=== PATIENT | female | born 1960 | race Caucasian/White ===

== ENCOUNTER 2017-11-29 14:03 | Inpatient (IN) ==
[2017-11-29 15:16] LABS: Basophils % 0.4 %; Eosinophils # 0.1 K/mcL (0.0-0.6); Eosinophils % 0.5 %; Hematocrit 45.5 % (35.3-44.9); Hemoglobin 14.3 g/dL (11.5-15.4); Immature Granulocytes % 0.2 % (0-4); Lymphocytes # 1.1 K/mcL (0.6-4.6); Lymphocytes % 11.5 %; Mean Corpuscular HGB Conc 31.4 g/dL (31.6-35.5); Mean Corpuscular Hemoglobin 31.4 pg (28.0-33.3); Mean Platelet Volume 9.1 fL (9.4-12.4); Monocytes % 10.2 %; Neutrophils # 7.5 K/mcL (1.6-8.9); Platelet Count 248 K/mcL (140-400); Red Blood Count 4.55 M/mcL (3.82-4.97); Red Cell Distribution Width 14.1 % (11.5-14.5); Segmented Neutrophils % 77.2 %
[2017-11-29 15:37] LABS: Troponin I < 0.03 ng/mL (< 0.04)
[2017-11-29] MEDS ORDERED: methylPREDNISolone 125 MG/2 ML VIAL IVP ONE (15:37)
[2017-11-29] MEDS ORDERED: Ipratropium/Albuterol Neb 3 ML IH ONE (15:37)
[2017-11-29 15:40] LABS: Alanine Aminotransferase 9 Units/L (7-52); Albumin 3.4 g/dL (3.5-5.7); Albumin/Globulin Ratio 0.9 (1.1-2.2); Alkaline Phosphatase 112 Units/L (34-104); Aspartate Amino Transferase 12 Units/L (13-39); BUN/Creatinine Ratio 14 (6-26); Bilirubin,Direct 0.2 mg/dL (0.0-0.2); Bilirubin,Indirect 0.3 mg/dL (0.0-1.2); Bilirubin,Total 0.5 mg/dL (0.3-1.0); Blood Urea Nitrogen 10 mg/dL (6-20); Calcium 9.4 mg/dL (8.6-10.3); Carbon Dioxide 37 mEq/L (23-29); Chloride 98 mEq/L (98-107); Globulin 3.6 g/dL (2.4-3.5); Glucose 122 mg/dL (70-105); Osmolality,Calculated 288 (280-300); Potassium 3.8 mEq/L (3.5-5.1); Sodium 139 mEq/L (136-145); eGFR For African Americans > 60 (> 60); eGFR For Non-African Americans > 60 (> 60)
--- NOTE | 2017-11-29 16:12 | Emergency Department Note ---
Disposition Clinical Impression: COPD (chronic obstructive pulmonary disease) Qualifiers: COPD type: COPD with acute lower respiratory infection Qualified Code(s): J44.0 - Chronic obstructive pulmonary disease with acute lower respiratory infection Pneumonia Qualifiers: Pneumonia type: due to unspecified organism Laterality: unspecified laterality Lung location: unspecified part of lung Qualified Code(s): J18.9 - Pneumonia, unspecified organism Disposition: Admitted As Inpatient Condition: Fair Referrals: Familia Slater MD [Primary Care Provider] - Forms: ED Satisfaction Letter Time of Disposition: 18:29 General Adult HPI - General Chief complaint: ED Shortness of Breath/Dyspnea Stated complaint: SOB Time Seen by Provider: 11/29/17 14:57 Source: patient Limitations: no limitations Nursing Notes Reviewed: Yes Vital Signs Reviewed: Yes - History of Present Illness HPI Narrative: Patient is a 57 showed female with a past medical history of COPD, CHF, HTN and HLD presenting to the emergency department for the presentation of difficulty in breathing. The patient states that the symptoms have come on gradually over the past 3 days now been worsening since that time. She describes a intermittently productive cough that brings up a white sputum. States that she recently quit smoking 3 days ago which she was a 2 pack per day smoker. She is currently on home oxygen she does not recall the amount that she uses daily and the patient is also on BiPAP at night. She denies any fevers, chest pain, pleuritic pain, nausea, vomiting, or diaphoresis. No history of blood clots. Pain Scale: 0 - Related Data Home Medications Medication Instructions Recorded Confirmed Albuterol Neb [Proventil Neb] 2.5 mg IH Q6H PRN 10/19/17 10/19/17 Albuterol Sulfate [Albuterol 2 puff IH Q4H PRN 10/19/17 10/19/17 Inhaler] Amitriptyline [Elavil] 50 mg PO HS 10/19/17 10/19/17 Budesonide/Formoterol 160/4.5 2 puff IH BIDR 10/19/17 10/19/17 [Symbicort 160/4.5] Cholecalciferol (Vitamin D3) 10,000 unit PO DAILY 10/19/17 10/19/17 [Vitamin D3] Diclofenac Sodium [Voltaren] 50 mg PO Q8HR 10/19/17 10/19/17 Famotidine [Pepcid] 20 mg PO BID 10/19/17 10/19/17 Gabapentin [Neurontin] 800 mg PO QID 10/19/17 10/19/17 Lisinopril/Hydrochlorothiazide 1 each PO DAILY 10/19/17 10/19/17 [Zestoretic 10-12.5 mg Tablet] Promethazine [Phenergan] 25 mg PO Q8H PRN 10/19/17 10/19/17 Tizanidine HCl 4 - 8 mg PO TID PRN 10/19/17 10/19/17 Trazodone HCl 100 mg PO HS PRN 10/19/17 10/19/17 Umeclidinium [place] [Incruse 62.5 mcg IH DAILY 10/19/17 10/19/17 Ellipta] Previous Rx's Medication Instructions Recorded Nicotine Patch [Nicoderm] 21 mg TD DAILY #30 patch.td24 10/25/17 predniSONE [PredniSONE] 10 mg PO DAILY #12 tablet 10/25/17 Allergies Allergy/AdvReac Type Severity Reaction Status Date / Time No Known Allergies Allergy Verified 12/09/15 12:33 All systems ED: reviewed and negative except as stated. Review of Systems: As Per HPI Constitutional: Denies: fever, chills ENT ED: Reports: congestion Cardiovascular: Reports: dyspnea on exertion. Denies: chest pain, palpitations , syncope Respiratory: Reports: cough, dyspnea, wheezes, sputum production. Denies: hemoptysis Gastrointestinal: Denies: abdominal pain, nausea, vomiting Past Medical History - Past Medical History Attestation: Yes The following information was validated with the patient. Medical history: Reports: CHF, COPD, hyperlipidemia, hypertension Surgical history: Reports: Psychiatric history: Reports: anxiety, depression MILL ORDER SCHEDULER history: Reports: no MILL ORDER SCHEDULER history - Social History Smoking Status: Current every day smoker Smokeless Tobacco Status: No Alcohol use: Reports: none Drug use: Reports: none Physical Exam CONSTITUTIONAL: A&O X 3, in no apparent distress. Patient is on 2 L nasal cannula satting in the low 90s. Tachycardic at 100. Patient does not appear to be in respiratory distress at this time. She speaks to me in full sentences she is sitting up with a nasal cannula on her face. HEAD: Normocephalic; atraumatic EYES: PERRL, no scleral icterus NOSE: The nose is normal in appearance without rhinorrhea NECK: No JVD or distended neck veins RESP: Normal chest excursion with respiration; wheezes throughout all lung betts. CARD: Regular rhythm, without murmurs, rub or gallop ABD: Non-distended; non-tender, soft, without rigidity, rebound or guarding,no pulsatile mass CHEST: No pain with palpation SKIN: Normal for age and race; warm and dry without diaphoresis ; no apparent lesions EXTREMITIES: Pulses are 2 plus and equal times 4 extremities, no peripheral edema or calf muscle pain. - General Limitations: no limitations General appearance: alert Course Course Narrative: Plan at this time is order basic labs as well as a troponin, EKG and chest x- ray to evaluate the patient's difficulty in breathing. She also received an IV dose of steroids as well as breathing treatments. Do not suspect pulmonary embolism at this time given the patient's current clinical presentation with no pleuritic chest pain, borderline tachycardia, no calf tenderness, no history of PE or DVT, and the gradual onset of symptoms in addition to given history of COPD. I discussed the plan with the patient and she agrees at this time. Also considering mass versus pneumonia. - Reevaluation(s) Reevaluation #1: Patient states that she feels that her breathing has improved after receiving the DuoNeb treatment. According to radiology the patient's chest x-ray did not show a definite pneumonia and there was question of a pulmonary nodule in which recommendations are made for a CT of the chest for further investigation. Given the patient's current clinical symptoms plan at this time is to admit her for a COPD exacerbation as well as treating her for a pneumonia that was acquired outside of the hospital. I will also order a CT of the chest. I discussed the patient's case with the hospitalist, Dr. Shoemaker, on-call and they agree to follow up with a chest CT and accept the patient for admission to the hospital. Time: 18:29 Vital Signs Temperature 98.1 F 11/29/17 14:26 Pulse Rate 100 11/29/17 14:26 Respiratory Rate 24 11/29/17 14:26 Blood Pressure 139/92 11/29/17 14:26 O2 Sat by Pulse Oximetry 81 11/29/17 14:26 Temperature 98.1 F 11/29/17 14:26 Pulse Rate 105 11/29/17 16:27 Respiratory Rate 19 11/29/17 16:27 Blood Pressure 124/85 11/29/17 16:27 O2 Sat by Pulse Oximetry 94 11/29/17 16:27 Oxygen Delivery Oxygen Delivery Nasal Cannula Medical Decision Making - Medical Records Medical records reviewed: Yes I reviewed the patient's medical records. - Lab Data Lab results reviewed: Yes I reviewed the patient's lab results. Result diagrams: 11/29/17 15:04 11/29/17 15:04 Lab Results 11/29/17 11/29/17 11/29/17 Range/Units 15:04 15:04 15:04 WBC 9.7 (4.3-11.1) K/mcL RBC 4.55 (3.82-4.97) M/mcL Hgb 14.3 (11.5-15.4) g/dL Hct 45.5 H (35.3-44.9) % MCV 100.0 (83.0-100.0) fL MCH 31.4 (28.0-33.3) pg MCHC 31.4 L (31.6-35.5) g/dL RDW 14.1 (11.5-14.5) % Plt Count 248 (140-400) K/mcL MPV 9.1 L (9.4-12.4) fL Immature Gran % 0.2 (0-4) % Seg Neutrophils % 77.2 % Lymphocytes % 11.5 % Monocytes % 10.2 % Eosinophils % 0.5 % Basophils % 0.4 % Neutrophils # 7.5 (1.6-8.9) K/mcL Lymphocytes # 1.1 (0.6-4.6) K/mcL Monocytes # 1.0 (0.0-1.3) K/mcL Eosinophils # 0.1 (0.0-0.6) K/mcL Basophils # 0.0 (0.0-0.2) K/mcL PT (9.4-12.1) Seconds INR APTT (26.0-36.0) Seconds Sodium 139 (136-145) mEq/L Potassium 3.8 (3.5-5.1) mEq/L Chloride 98 (98-107) mEq/L Carbon Dioxide 37 H (23-29) mEq/L BUN 10 (6-20) mg/dL Creatinine 0.69 (0.60-1.20) mg/dL Est GFR ( Amer) > 60 (> 60) Est GFR (Non-Af Amer) > 60 (> 60) BUN/Creatinine Ratio 14 (6-26) Glucose 122 H (70-105) mg/dL Calculated Osmolality 288 (280-300) Lactic Acid 0.9 (0.5-2.2) mmol/L Calcium 9.4 (8.6-10.3) mg/dL Total Bilirubin 0.5 (0.3-1.0) mg/dL Direct Bilirubin 0.2 (0.0-0.2) mg/dL Indirect Bilirubin 0.3 (0.0-1.2) mg/dL AST 12 L (13-39) Units/L ALT 9 (7-52) Units/L Alkaline Phosphatase 112 H (34-104) Units/L Troponin I < 0.03 (< 0.04) ng/mL Serum Total Protein 7.0 (6.4-8.9) g/dL Albumin 3.4 L (3.5-5.7) g/dL Globulin 3.6 H (2.4-3.5) g/dL Albumin/Globulin Ratio 0.9 L (1.1-2.2) Specimen Rejected 11/29/17 11/29/17 Range/Units 15:04 16:06 WBC (4.3-11.1) K/mcL RBC (3.82-4.97) M/mcL Hgb (11.5-15.4) g/dL Hct (35.3-44.9) % MCV (83.0-100.0) fL MCH (28.0-33.3) pg MCHC (31.6-35.5) g/dL RDW (11.5-14.5) % Plt Count (140-400) K/mcL MPV (9.4-12.4) fL Immature Gran % (0-4) % Seg Neutrophils % % Lymphocytes % % Monocytes % % Eosinophils % % Basophils % % Neutrophils # (1.6-8.9) K/mcL Lymphocytes # (0.6-4.6) K/mcL Monocytes # (0.0-1.3) K/mcL Eosinophils # (0.0-0.6) K/mcL Basophils # (0.0-0.2) K/mcL PT 12.9 H (9.4-12.1) Seconds INR 1.2 APTT 32.1 (26.0-36.0) Seconds Sodium (136-145) mEq/L Potassium (3.5-5.1) mEq/L Chloride (98-107) mEq/L Carbon Dioxide (23-29) mEq/L BUN (6-20) mg/dL Creatinine (0.60-1.20) mg/dL Est GFR ( Amer) (> 60) Est GFR (Non-Af Amer) (> 60) BUN/Creatinine Ratio (6-26) Glucose (70-105) mg/dL Calculated Osmolality (280-300) Lactic Acid (0.5-2.2) mmol/L Calcium (8.6-10.3) mg/dL Total Bilirubin (0.3-1.0) mg/dL Direct Bilirubin (0.0-0.2) mg/dL Indirect Bilirubin (0.0-1.2) mg/dL AST (13-39) Units/L ALT (7-52) Units/L Alkaline Phosphatase (34-104) Units/L Troponin I (< 0.04) ng/mL Serum Total Protein (6.4-8.9) g/dL Albumin (3.5-5.7) g/dL Globulin (2.4-3.5) g/dL Albumin/Globulin Ratio (1.1-2.2) Specimen Rejected Volume - Radiology Data Radiology results reviewed: Yes I reviewed the patient's radiology results. Chest X-Ray 11/29/17 14:36 IMPRESSION: Mild bibasilar atelectasis. No definite pneumonia. No other acute abnormality. Possible pulmonary nodule superimposed on the inferior right hilum or else prominent partially calcified lymph node present. RECOMMENDATION: CT scan of the chest suggested for further evaluation. D/ / Kendrick Guillaume MD / Kendrick Guillaume MD Interpreting Provider: Kendrick Guillaume MD - EKG Data EKG #1 EKG attestation: Yes I reviewed and interpreted this EKG. EKG results narrative: EKG done at 14:55 shows sinus rhythm at a rate of 93 bpm. Normal axis. DC intervals 146, QRS is 95, QT is 287 and QTc is 337 and these are within normal limits. No signs of ST elevation, ST depression or new Q waves present. Patient has nonspecific T-wave abnormalities. EKG is unchanged when compared to 10/19/2017.
[2017-11-29 16:21] LABS: INR 1.2; Prothrombin Time 12.9 Seconds (9.4-12.1)
[2017-11-29 16:24] LABS: Activated Partial Thrombo Time 32.1 Seconds (26.0-36.0)
--- NOTE | 2017-11-29 16:49 | Emergency Department Note ---
Disposition Clinical Impression: COPD (chronic obstructive pulmonary disease) Qualifiers: COPD type: COPD with acute lower respiratory infection Qualified Code(s): J44.0 - Chronic obstructive pulmonary disease with acute lower respiratory infection Pneumonia Qualifiers: Pneumonia type: due to unspecified organism Laterality: bilateral Lung location : unspecified part of lung Qualified Code(s): J18.9 - Pneumonia, unspecified organism Disposition: Admitted As Inpatient Condition: Fair General Adult HPI - General Chief complaint: ED Shortness of Breath/Dyspnea Stated complaint: SOB Time Seen by Provider: 11/29/17 14:57 Source: patient Limitations: no limitations - History of Present Illness Pain Scale: 8 - Related Data Home Medications Medication Instructions Recorded Confirmed Albuterol Neb [Proventil Neb] 2.5 mg IH Q6H PRN 10/19/17 11/29/17 Albuterol Sulfate [Albuterol 2 puff IH Q4H PRN 10/19/17 11/29/17 Inhaler] Amitriptyline [Elavil] 50 mg PO HS 10/19/17 11/29/17 Budesonide/Formoterol 160/4.5 2 puff IH BIDR 10/19/17 11/29/17 [Symbicort 160/4.5] Cholecalciferol (Vitamin D3) 10,000 unit PO DAILY 10/19/17 11/29/17 [Vitamin D3] Diclofenac Sodium [Voltaren] 50 mg PO Q8HR 10/19/17 11/29/17 Famotidine [Pepcid] 20 mg PO BID 10/19/17 11/29/17 Gabapentin [Neurontin] 800 mg PO QID 10/19/17 11/29/17 Lisinopril/Hydrochlorothiazide 1 each PO DAILY 10/19/17 11/29/17 [Zestoretic 10-12.5 mg Tablet] Promethazine [Phenergan] 25 mg PO Q8H PRN 10/19/17 11/29/17 Tizanidine HCl 4 - 8 mg PO TID PRN 10/19/17 11/29/17 Trazodone HCl 100 mg PO HS PRN 10/19/17 11/29/17 Umeclidinium [place] [Incruse 62.5 mcg IH DAILY 10/19/17 11/29/17 Ellipta] Amlodipine Besylate [Amlodipine 10 mg PO DAILY 11/29/17 11/29/17 Besylate] Allergies Allergy/AdvReac Type Severity Reaction Status Date / Time No Known Allergies Allergy Verified 12/09/15 12:33 Constitutional: Denies: fever, chills ENT ED: Reports: congestion Cardiovascular: Reports: dyspnea on exertion. Denies: chest pain, palpitations , syncope Respiratory: Reports: cough, dyspnea, wheezes, sputum production. Denies: hemoptysis Gastrointestinal: Denies: abdominal pain, nausea, vomiting Past Medical History - Past Medical History Medical history: Reports: CHF, COPD, hyperlipidemia, hypertension Surgical history: Reports: Psychiatric history: Reports: anxiety, depression LATHE HAND history: Reports: no LATHE HAND history - Social History Smoking Status: Current every day smoker Smokeless Tobacco Status: No Alcohol use: Reports: none Drug use: Reports: none Physical Exam - General Limitations: no limitations General appearance: alert Course Vital Signs Temperature 98.1 F 11/29/17 14:26 Pulse Rate 100 11/29/17 14:26 Respiratory Rate 24 11/29/17 14:26 Blood Pressure 139/92 11/29/17 14:26 O2 Sat by Pulse Oximetry 81 11/29/17 14:26 Temperature 97.9 F 11/30/17 18:49 Pulse Rate 95 11/30/17 18:49 Respiratory Rate 18 11/30/17 18:49 Blood Pressure 110/76 11/30/17 18:49 O2 Sat by Pulse Oximetry 94 11/30/17 18:49 Oxygen Delivery Oxygen Delivery Nasal Cannula Medical Decision Making - Lab Data Result diagrams: 11/30/17 04:03 11/30/17 04:03 Lab Results 11/29/17 11/29/17 11/29/17 Range/Units 15:04 15:04 15:04 WBC 9.7 (4.3-11.1) K/mcL RBC 4.55 (3.82-4.97) M/mcL Hgb 14.3 (11.5-15.4) g/dL Hct 45.5 H (35.3-44.9) % MCV 100.0 (83.0-100.0) fL MCH 31.4 (28.0-33.3) pg MCHC 31.4 L (31.6-35.5) g/dL RDW 14.1 (11.5-14.5) % Plt Count 248 (140-400) K/mcL MPV 9.1 L (9.4-12.4) fL Immature Gran % 0.2 (0-4) % Seg Neutrophils % 77.2 % Lymphocytes % 11.5 % Monocytes % 10.2 % Eosinophils % 0.5 % Basophils % 0.4 % Neutrophils # 7.5 (1.6-8.9) K/mcL Lymphocytes # 1.1 (0.6-4.6) K/mcL Monocytes # 1.0 (0.0-1.3) K/mcL Eosinophils # 0.1 (0.0-0.6) K/mcL Basophils # 0.0 (0.0-0.2) K/mcL PT (9.4-12.1) Seconds INR APTT (26.0-36.0) Seconds Sodium 139 (136-145) mEq/L Potassium 3.8 (3.5-5.1) mEq/L Chloride 98 (98-107) mEq/L Carbon Dioxide 37 H (23-29) mEq/L BUN 10 (6-20) mg/dL Creatinine 0.69 (0.60-1.20) mg/dL Est GFR ( Amer) > 60 (> 60) Est GFR (Non-Af Amer) > 60 (> 60) BUN/Creatinine Ratio 14 (6-26) Glucose 122 H (70-105) mg/dL Calculated Osmolality 288 (280-300) Lactic Acid 0.9 (0.5-2.2) mmol/L Calcium 9.4 (8.6-10.3) mg/dL Total Bilirubin 0.5 (0.3-1.0) mg/dL Direct Bilirubin 0.2 (0.0-0.2) mg/dL Indirect Bilirubin 0.3 (0.0-1.2) mg/dL AST 12 L (13-39) Units/L ALT 9 (7-52) Units/L Alkaline Phosphatase 112 H (34-104) Units/L Troponin I < 0.03 (< 0.04) ng/mL B-Natriuretic Peptide (Less than 100) pg/mL Serum Total Protein 7.0 (6.4-8.9) g/dL Albumin 3.4 L (3.5-5.7) g/dL Globulin 3.6 H (2.4-3.5) g/dL Albumin/Globulin Ratio 0.9 L (1.1-2.2) Specimen Rejected 11/29/17 11/29/17 11/29/17 Range/Units 15:04 15:04 16:06 WBC (4.3-11.1) K/mcL RBC (3.82-4.97) M/mcL Hgb (11.5-15.4) g/dL Hct (35.3-44.9) % MCV (83.0-100.0) fL MCH (28.0-33.3) pg MCHC (31.6-35.5) g/dL RDW (11.5-14.5) % Plt Count (140-400) K/mcL MPV (9.4-12.4) fL Immature Gran % (0-4) % Seg Neutrophils % % Lymphocytes % % Monocytes % % Eosinophils % % Basophils % % Neutrophils # (1.6-8.9) K/mcL Lymphocytes # (0.6-4.6) K/mcL Monocytes # (0.0-1.3) K/mcL Eosinophils # (0.0-0.6) K/mcL Basophils # (0.0-0.2) K/mcL PT 12.9 H (9.4-12.1) Seconds INR 1.2 APTT 32.1 (26.0-36.0) Seconds Sodium (136-145) mEq/L Potassium (3.5-5.1) mEq/L Chloride (98-107) mEq/L Carbon Dioxide (23-29) mEq/L BUN (6-20) mg/dL Creatinine (0.60-1.20) mg/dL Est GFR ( Amer) (> 60) Est GFR (Non-Af Amer) (> 60) BUN/Creatinine Ratio (6-26) Glucose (70-105) mg/dL Calculated Osmolality (280-300) Lactic Acid (0.5-2.2) mmol/L Calcium (8.6-10.3) mg/dL Total Bilirubin (0.3-1.0) mg/dL Direct Bilirubin (0.0-0.2) mg/dL Indirect Bilirubin (0.0-1.2) mg/dL AST (13-39) Units/L ALT (7-52) Units/L Alkaline Phosphatase (34-104) Units/L Troponin I (< 0.04) ng/mL B-Natriuretic Peptide 41 (Less than 100) pg/mL Serum Total Protein (6.4-8.9) g/dL Albumin (3.5-5.7) g/dL Globulin (2.4-3.5) g/dL Albumin/Globulin Ratio (1.1-2.2) Specimen Rejected Volume Attestation Statement - Attestation Attestation: I examined this patient and my medical decision-making was reviewed with the [employer]IE[employer]INE[employer]/PA/Advanced Practice Nurse/Resident Physician. I agree with the documented findings, disposition and treatment plan as described except to the extent set forth below. I did see the patient and spoke with her and did examine her. Does have bilateral wheezing and crackles, history of COPD and does use home oxygen. Initial oxygen saturation 81%, DuoNeb, Solu-Medrol, antibiotics and the patient will be admitted to the hospital. I did review her EKG showing normal sinus rhythm with a rate of 93 without acute ischemic change but there are some nonspecific T-wave changes. [id number]
[2017-11-29] MEDS ORDERED: Azithromycin 500 MG in D5% in Water 250 ML IVPB ONE (17:56)
[2017-11-29] MEDS ORDERED: cefTRIAXone 1,000 MG in Water for inj. (sterile) 20 ML 10 ML IVP ONE (17:56)
[2017-11-29] MEDS ORDERED: Naloxone 0.4 MG/ML INJ IVP PRN (21:28)
[2017-11-29] MEDS ORDERED: Acetaminophen 325 MG TABLET PO PRN (21:28)
--- NOTE | 2017-11-29 21:35 | Internal Med History&Physical ---
Date of Encounter: 11/29/17 Time of Encounter: 21:32 Internal Medicine - H&P: HPI Chief complaint: Shortness of breath Admitted From: Emergency Dept Plans for Post Hospital Care: Home History of present illness: Ms. Ashton is a 57 year old female with history of COPD, on home oxygen and BiPAP, who presents with complaints of shortness of breath. Patient reports a 3 day history of cough and shortness of breath, worse with exertion, getting progressively worse. Cough is productive with occasional whitish mucus, associated with wheezing and chest pain on inspiration. No fever, chills, palpitations, dizziness or syncope. She reports noncompliance to BiPAP as it makes her uncomfortable. She is a chronic active smoker, smokes about 2 packs per day, reports that she just quit 3 days ago. She does not remember how much O2 her machine delivers and has no portable O2. Past Med Surg Social Fam HX - Past Medical History Source: patient Medical history: CHF, COPD, hyperlipidemia, hypertension Psychiatric history: anxiety, depression - Past Surgical History Surgical History: , orthopedic, other (left wrist surgery, back surgery ) - Social History Smoking Status: Current every day smoker Packs per day: 2 Smokeless Tobacco Status: No Alcohol use: none Drug use: none Occupational status: unemployed Current living situation: Home, With Family Activity Level: Independent ambulation Recent Out of Country Travel Within the Last 8 Weeks: No Exposure or Possible Exposure to Illness During Travel: No - Family History Mother Living Status: Hx Family Endocrine Disorder: Yes (DM) Father Living Status: Hx Family Cardiac Disorders: Yes (BYPASS) Hx Family Endocrine Disorder: Yes (DM) Internal Medicine - H&P: Meds Albuterol Neb [Proventil Neb] 2.5 mg IH Q6H PRN 10/19/17 [History] Albuterol Sulfate [Albuterol Inhaler] 2 puff IH Q4H PRN 10/19/17 [History] Amitriptyline [Elavil] 50 mg PO HS 10/19/17 [History] Budesonide/Formoterol 160/4.5 [Symbicort 160/4.5] 2 puff IH BIDR 10/19/17 [ History] Cholecalciferol (Vitamin D3) [Vitamin D3] 10,000 unit PO DAILY 10/19/17 [History ] Diclofenac Sodium [Voltaren] 50 mg PO Q8HR 10/19/17 [History] Famotidine [Pepcid] 20 mg PO BID 10/19/17 [History] Gabapentin [Neurontin] 800 mg PO QID 10/19/17 [History] Lisinopril/Hydrochlorothiazide [Zestoretic 10-12.5 mg Tablet] 1 each PO DAILY [History] Promethazine [Phenergan] 25 mg PO Q8H PRN 10/19/17 [History] Tizanidine HCl 4 - 8 mg PO TID PRN 10/19/17 [History] Trazodone HCl 100 mg PO HS PRN 10/19/17 [History] Umeclidinium [place] [Incruse Ellipta] 62.5 mcg IH DAILY 10/19/17 [History] Amlodipine Besylate [Amlodipine Besylate] 10 mg PO DAILY 11/29/17 [History] 3 Allergy/AdvReac Type Severity Reaction Status Date / Time No Known Allergies Allergy Verified 12/09/15 12:33 All Systems PM: A 10-system review of systems was performed and is negative for pertinent findings except as documented above in the HPI. - Constitutional Constitutional: no chills, no fever(s), no night sweats - EENT Eyes: no change in vision, no discharge, no pain, no photophobia Ears: no ear discharge, no ear pain, no tinnitus Nose, mouth and throat: no dysphagia, no nasal discharge, no neck pain, no sore throat - Cardiovascular Cardiovascular ROS IM: chest pain, dyspnea, dyspnea on exertion - Respiratory Respiratory: cough, dyspnea, dyspnea on exertion, wheezing, chest congestion - Gastrointestinal Gastrointestinal: no abdominal pain, no diarrhea, no hematemesis, no hematochezia, no melena, no nausea, no vomiting - Genitourinary Genitourinary: no change in urinary stream, no dysuria, no flank pain, no hematuria - Musculoskeletal Musculoskeletal ROS IM: no numbness, no tingling - Integumentary Integumentary IM: no rash, no unusual bruising - Neurological Neurological ROS: no confusion, no convulsions, no focal weakness, no numbness, no tingling, no tremor(s) - Hematologic/Lymphatic Hematologic/Lymphatic: no easy bruising - Constitutional Vitals: Temp Pulse Resp BP Pulse Ox 98.2 F 82 14 137/86 96 11/29/17 21:22 11/29/17 21:22 11/29/17 21:22 11/29/17 21:22 11/29/17 21:22 General appearance: Present: A&O X 3, morbidly obese, answers questions appropriately - Respiratory Respiratory exam: Present: decreased breath sounds (B/L decreased air entry), CTAB. Absent: accessory muscle use, rales, rhonchi, wheezes - Cardiovascular Cardiovascular exam: Present: RRR, +S1, +S2. Absent: diastolic murmur, gallop, rubs, systolic murmur - GI/Abdominal GI/Abdominal exam: Present: normal bowel sounds, soft (obese), no peritoneal signs. Absent: distended, tenderness - Extremities Exam Extremities exam: Present: full ROM, pedal edema, warm, radial pulses palpable and symmetrical. Absent: calf tenderness, cyanotic - Neurological Exam Neurological exam: Present: CN II-XII intact, oriented X3, no focal deficits. Absent: pronater drift, facial droop, speech deficit Internal Med - H&P Results - Labs CBC & Chem 7: 11/29/17 15:04 11/29/17 15:04 - Assessment and plan (1) COPD with acute exacerbation Current Visit: Yes Status: Acute Assessment and plan: possibly due to underlying Pneumonia; start IV steroids and scheduled bronchodilator nebs; continue ICS, supplemental O2 and BiPAP support, wean down fiO2 as tolerated. Empiric IV antibiotics; (2) Acute and chronic respiratory failure Current Visit: Yes Status: Acute Assessment and plan: due to underlying COPD and Pneumonia; unsure of how much O2 she uses at home. Continue supplemental O2 and wean down FiO2 as tolerated. Qualifiers: Respiratory failure complication: hypoxia Qualified Code(s): J96.21 - Acute and chronic respiratory failure with hypoxia (3) Anxiety and depression Current Visit: Yes Status: Chronic Assessment and plan: resume home meds; (4) Pneumonia Current Visit: Yes Status: Acute Assessment and plan: CT chest shows B/L tree-in-bud opacities s/o- inflammation and infection; continue IV Rocephin and Azithromycin and f/up blood cultures; supportive care and supplemental O2; Qualifiers: Pneumonia type: due to unspecified organism Laterality: bilateral Lung location: unspecified part of lung Qualified Code(s): J18.9 - Pneumonia, unspecified organism (5) Hypertension Current Visit: Yes Status: Chronic Assessment and plan: BP acceptable; resume home meds; Qualifiers: Hypertension type: essential hypertension Qualified Code(s): I10 - Essential (primary) hypertension (6) Morbid obesity Current Visit: Yes Status: Chronic (7) Tobacco abuse Current Visit: Yes Status: Chronic Assessment and plan: reports that she quit 3 days ago; declines Nicotine transdermal patch at this time; - Time Spent With Patient Total time spent is greater than 50% in coordination of care (as documented) at patient's floor/unit and/or counseling patient:
[2017-11-29] MEDS: Ipratropium/Albuterol Neb 3 ML IH SCH (21:50)
[2017-11-29] MEDS: Budesonide/Formoterol 160/4.5 MDI IH SCH (21:52)
[2017-11-29] MEDS: traZODone 50 MG TABLET PO PRN (23:35)
[2017-11-29] MEDS: *HR* Heparin 5,000 UNIT/ML VIAL SQ SCH (23:36)
[2017-11-29] MEDS: MethylPREDNISolone 40 MG/ML VIAL IVP SCH (23:36)
[2017-11-30] MEDS: Gabapentin 400 MG CAPSULE PO SCH ×5 (00:32→21:27)
[2017-11-30] MEDS: Ipratropium/Albuterol Neb 3 ML IH SCH ×4 (03:55→22:18)
[2017-11-30 05:01] LABS: Basophils % 0.1 %; Hematocrit 44.6 % (35.3-44.9); Hemoglobin 14.2 g/dL (11.5-15.4); Immature Granulocytes % 0.5 % (0-4); Lymphocytes # 0.7 K/mcL (0.6-4.6); Lymphocytes % 8.2 %; Mean Corpuscular HGB Conc 31.8 g/dL (31.6-35.5); Mean Corpuscular Hemoglobin 31.6 pg (28.0-33.3); Mean Corpuscular Volume 99.3 fL (83.0-100.0); Mean Platelet Volume 9.7 fL (9.4-12.4); Monocytes # 0.1 K/mcL (0.0-1.3); Monocytes % 1.7 %; Neutrophils # 7.3 K/mcL (1.6-8.9); Platelet Count 282 K/mcL (140-400); Red Blood Count 4.49 M/mcL (3.82-4.97); Red Cell Distribution Width 14.1 % (11.5-14.5); Segmented Neutrophils % 89.5 %
[2017-11-30 05:08] LABS: BUN/Creatinine Ratio 17 (6-26); Blood Urea Nitrogen 11 mg/dL (6-20); Calcium 9.7 mg/dL (8.6-10.3); Carbon Dioxide 37 mEq/L (23-29); Chloride 99 mEq/L (98-107); Glucose 156 mg/dL (70-105); Magnesium 2.1 mg/dL (1.6-2.6); Osmolality,Calculated 291 (280-300); Potassium 3.9 mEq/L (3.5-5.1); Sodium 139 mEq/L (136-145); eGFR For African Americans > 60 (> 60); eGFR For Non-African Americans > 60 (> 60)
[2017-11-30] MEDS: *HR* Heparin 5,000 UNIT/ML VIAL SQ SCH ×3 (05:44→21:27)
[2017-11-30] MEDS: Benzonatate 100 MG CAPSULE PO PRN ×2 (10:07→21:27)
[2017-11-30] MEDS: MethylPREDNISolone 40 MG/ML VIAL IVP SCH ×2 (10:07→17:46)
[2017-11-30] MEDS: amLODIPine 5 MG TABLET PO SCH (10:08)
[2017-11-30] MEDS: Budesonide/Formoterol 160/4.5 MDI IH SCH ×2 (10:41→22:17)
[2017-11-30 11:56] LABS: Adenovirus Not Detected (Not Detect); Bordetella Pertussis Not Detected (Not Detect); Chlamydophila pneumoniae Not Detected (Not Detect); Coronavirus 229E Not Detected (Not Detect); Coronavirus HKU1 Not Detected (Not Detect); Coronavirus NL63 Not Detected (Not Detect); Coronavirus OC43 Not Detected (Not Detect); Human Metapneumovirus Not Detected (Not Detect); Human Rhinovirus/Enterovirus Not Detected (Not Detect); Influenza A Subtype 2009 H1 Not Detected (Not Detect); Influenza A Untypeable Not Detected (Not Detect); Influenza B Not Detected (Not Detect); Mycoplasma pneumoniae Not Detected (Not Detect); Parainfluenza Virus 1 Not Detected (Not Detect); Parainfluenza Virus 2 Not Detected (Not Detect); Parainfluenza Virus 3 Not Detected (Not Detect); Parainfluenza Virus 4 Not Detected (Not Detect); Respiratory Syncytial Virus Not Detected (Not Detect)
[2017-11-30] MEDS: cefTRIAXone 2,000 MG in Water for inj. (sterile) 20 ML 20 ML IVP SCH (17:45)
--- NOTE | 2017-11-30 17:45 | Internal Med Progress Note ---
Date of Encounter: 11/30/17 Time of Encounter: 17:43 - Assessment and plan (1) COPD with acute exacerbation Current Visit: Yes Status: Acute Assessment and plan: Due to underlying Pneumonia and tobacco abuse. Continue IV steroids and scheduled bronchodilator nebs continue ICS Continue supplemental O2 and BiPAP support, wean down fiO2 as tolerated. Continue Empiric IV antibiotics (2) Hypertension Current Visit: Yes Status: Chronic Assessment and plan: BP acceptable, resume home meds; Qualifiers: Hypertension type: essential hypertension Qualified Code(s): I10 - Essential (primary) hypertension (3) Tobacco abuse Current Visit: Yes Status: Chronic Assessment and plan: Patient reports that she quit 3 days ago; declines Nicotine transdermal patch at this time; (4) Morbid obesity Current Visit: Yes Status: Chronic Assessment and plan: Lifestyle modification including activity and diet recommended (5) Pneumonia Current Visit: Yes Status: Acute Assessment and plan: CT chest shows B/L tree-in-bud opacities significant for inflammation and infection continue IV Rocephin and Azithromycin and f/up blood cultures report pending supportive care and supplemental O2; Qualifiers: Pneumonia type: due to unspecified organism Laterality: bilateral Lung location: unspecified part of lung Qualified Code(s): J18.9 - Pneumonia, unspecified organism (6) Anxiety and depression Current Visit: Yes Status: Chronic Assessment and plan: Stable mood, resume home meds; (7) Acute and chronic respiratory failure Current Visit: Yes Status: Acute Assessment and plan: due to underlying COPD and Pneumonia; continue supplemental oxygen and wean as tolerated. BiPAP at bedtime. She does not know her home oxygen dose and will need a walk test before discharge Qualifiers: Respiratory failure complication: hypoxia Qualified Code(s): J96.21 - Acute and chronic respiratory failure with hypoxia - Time Spent With Patient Total time spent is greater than 50% in coordination of care (as documented) at patient's floor/unit and/or counseling patient: - Subjective Interval history: Patient is sitting up in bed in no distress on 2 L nasal cannula she states she uses oxygen at home but has no idea the liter flow. She also has a BiPAP at home that she is intolerant of and has not used for some time. She states she is feeling a lot better this morning. She is a 2 pack per day smoker and states she quit 3 days before admission. I congratulated her and told her to keep up the good work. Frank findings on some of her testing including her respiratory infectious panel which is negative. She denies any chest pain, dyspnea, fevers, chills, sweats, abdominal pain or discomfort. - Constitutional Vitals: Temp Pulse Resp BP Pulse Ox 98.0 F 76 20 119/72 92 11/30/17 15:27 11/30/17 15:27 11/30/17 15:37 11/30/17 15:27 11/30/17 15:37 General appearance: Present: cooperative, A&O X 3, morbidly obese, pleasant, answers questions appropriately - Head Head exam: Present: atraumatic, normocephalic - Eye Eye exam: Present: PERRL, conjuntiva pink, sclera anicteric Pupils: Present: PERRL - Neck Neck exam general surgery: Present: supple, trachea midline. Absent: lymphadenopathy - Respiratory Respiratory exam: Present: decreased breath sounds, prolonged expiratory phase, wheezes. Absent: accessory muscle use, rales, rhonchi - Cardiovascular Cardiovascular exam: Present: RRR, +S1, +S2. Absent: diastolic murmur, gallop, rubs, systolic murmur - GI/Abdominal GI/Abdominal exam: Present: normal bowel sounds, soft, no peritoneal signs. Absent: distended, tenderness - Extremities Exam Extremities exam: Present: warm, radial pulses palpable and symmetrical. Absent : calf tenderness, cyanotic, pedal edema - Neurological Exam Neurological exam: Present: alert, CN II-XII intact, oriented X3, no focal deficits. Absent: pronater drift, facial droop, speech deficit - Skin Skin exam: Present: dry, intact, normal color, warm Internal Medicine: Result - Labs CBC & Chem 7: 11/30/17 04:03 11/30/17 04:03 Labs: Short CBC 11/30/17 Range/Units 04:03 WBC 8.1 (4.3-11.1) K/mcL Hgb 14.2 (11.5-15.4) g/dL Hct 44.6 (35.3-44.9) % Plt Count 282 (140-400) K/mcL Neutrophils # 7.3 (1.6-8.9) K/mcL BMP 11/30/17 04:03 Sodium 139 Potassium 3.9 Chloride 99 Carbon Dioxide 37 H BUN 11 Creatinine 0.63 Glucose 156 H Calcium 9.7 - ABG Interpretation ABG results: PT/INR, D-dimer PT 12.9 Seconds (9.4-12.1) H 11/29/17 16:06 Consult Discharge Plan - Plan Referrals: Bibi Chow CNP [Advanced Practice Nurse] - 12/06/17 11:00 am Familia Slater MD [Primary Care Provider] - 01/25/18 1:45 pm
[2017-11-30] MEDS: Azithromycin 500 MG in D5% in Water 250 ML IVPB SCH (17:46)
[2017-11-30] MEDS: traZODone 50 MG TABLET PO PRN (21:27)
[2017-12-01] MEDS: MethylPREDNISolone 40 MG/ML VIAL IVP SCH ×4 (00:18→23:59)
[2017-12-01] MEDS: Ipratropium/Albuterol Neb 3 ML IH SCH ×4 (03:27→22:17)
[2017-12-01] MEDS: *HR* Heparin 5,000 UNIT/ML VIAL SQ SCH ×3 (05:38→21:54)
[2017-12-01] MEDS: amLODIPine 5 MG TABLET PO SCH (09:20)
[2017-12-01] MEDS: Gabapentin 400 MG CAPSULE PO SCH ×4 (09:20→21:53)
[2017-12-01] MEDS: Budesonide/Formoterol 160/4.5 MDI IH SCH ×2 (09:40→22:17)
--- NOTE | 2017-12-01 16:46 | Internal Med Progress Note ---
Date of Encounter: 12/01/17 Time of Encounter: 16:44 - Assessment and plan (1) COPD with acute exacerbation Current Visit: Yes Status: Acute Assessment and plan: Exacerbation secondary to Pneumonia and tobacco abuse. Continue IV steroids and scheduled bronchodilator nebs continue ICS Continue supplemental O2 and BiPAP support, wean down fiO2 as tolerated. Continue Empiric IV antibiotics (2) Hypertension Current Visit: Yes Status: Chronic Assessment and plan: BP acceptable, continue home meds; Qualifiers: Hypertension type: essential hypertension Qualified Code(s): I10 - Essential (primary) hypertension (3) Tobacco abuse Current Visit: Yes Status: Chronic Assessment and plan: Patient reports she quit 3 days ago; declines Nicotine transdermal patch at this time; (4) Morbid obesity Current Visit: Yes Status: Chronic Assessment and plan: Lifestyle modification including activity and diet (5) Pneumonia Current Visit: Yes Status: Acute Assessment and plan: CT chest shows bilateral tree-in-bud opacities significant for inflammation and infection continue IV Rocephin and Azithromycin and f/up blood cultures report pending supportive care and supplemental O2; Qualifiers: Pneumonia type: due to unspecified organism Laterality: bilateral Lung location: unspecified part of lung Qualified Code(s): J18.9 - Pneumonia, unspecified organism (6) Anxiety and depression Current Visit: Yes Status: Chronic Assessment and plan: Stable, resume home meds; (7) Acute and chronic respiratory failure Current Visit: Yes Status: Acute Assessment and plan: due to underlying COPD and Pneumonia; continue supplemental oxygen, wean as tolerated. BiPAP at bedtime. She does not know her home oxygen dose and will need a walk test before discharge Qualifiers: Respiratory failure complication: hypoxia Qualified Code(s): J96.21 - Acute and chronic respiratory failure with hypoxia - Time Spent With Patient Total time spent is greater than 50% in coordination of care (as documented) at patient's floor/unit and/or counseling patient: - Subjective Interval history: Patient is sitting up in bed in no distress on 4 liters nc. She feels her breathing is better and has no complaints of chest pain, fever, chills, abdominal pain, or changes in bowel or bladder. She still has some infrequent cough with little sputum production. She uses 3 L nasal cannula at home. - Constitutional Vitals: Temp Pulse Resp BP Pulse Ox 99.4 F 103 20 130/86 92 12/01/17 15:36 12/01/17 15:36 12/01/17 15:36 12/01/17 15:36 12/01/17 15:36 General appearance: Present: cooperative, A&O X 3, morbidly obese, pleasant, answers questions appropriately - Head Head exam: Present: atraumatic, normocephalic - Eye Eye exam: Present: PERRL, conjuntiva pink, sclera anicteric Pupils: Present: PERRL - Neck Neck exam general surgery: Present: supple, trachea midline. Absent: lymphadenopathy - Respiratory Respiratory exam: Present: prolonged expiratory phase, wheezes. Absent: accessory muscle use, rales, rhonchi - Cardiovascular Cardiovascular exam: Present: RRR, +S1, +S2. Absent: diastolic murmur, gallop, rubs, systolic murmur - GI/Abdominal GI/Abdominal exam: Present: normal bowel sounds, soft, no peritoneal signs. Absent: distended, tenderness - Extremities Exam Extremities exam: Present: warm, radial pulses palpable and symmetrical. Absent : calf tenderness, cyanotic, pedal edema - Neurological Exam Neurological exam: Present: CN II-XII intact, oriented X3, no focal deficits. Absent: pronater drift, facial droop, speech deficit - Skin Skin exam: Present: dry, intact, normal color, warm Internal Medicine: Result - Labs CBC & Chem 7: 11/30/17 04:03 11/30/17 04:03 - ABG Interpretation ABG results: PT/INR, D-dimer PT 12.9 Seconds (9.4-12.1) H 11/29/17 16:06 Consult Discharge Plan - Plan Referrals: Bibi Chow CNP [Advanced Practice Nurse] - 12/06/17 11:00 am Familia Slater MD [Primary Care Provider] - 01/25/18 1:45 pm
[2017-12-01] MEDS: cefTRIAXone 2,000 MG in Water for inj. (sterile) 20 ML 20 ML IVP SCH (16:59)
[2017-12-01] MEDS: Azithromycin 500 MG in D5% in Water 250 ML IVPB SCH (21:54)
[2017-12-01] MEDS: traZODone 50 MG TABLET PO PRN (22:02)
[2017-12-02] MEDS: Ipratropium/Albuterol Neb 3 ML IH SCH (03:56)
[2017-12-02] MEDS: *HR* Heparin 5,000 UNIT/ML VIAL SQ SCH (05:07)
[2017-12-02 07:47] VITALS: BP 109/71
--- NOTE | 2017-12-02 08:28 | Discharge Summary ---
- NOTES TO OUTPATIENT PROVIDER Notes to Outpatient Provider: f/u with PCP in 5 to 7 days. Yogurt or probiotic while on Levaquin Date of Encounter: 12/02/17 Time of Encounter: 08:24 - Discharge Diagnosis (1) COPD with acute exacerbation Priority: Primary Status: Acute Comments: Flare likely secondary to pneumonia and tobacco abuse. Patient states she is no longer smoking. We will continue duo nebs at home as well as a prednisone taper and Tessalon Perles to control the cough. (2) Hypertension Priority: Primary Status: Chronic Comments: Pressure has been stable continue home medications on discharge Qualifiers: Hypertension type: essential hypertension Qualified Code(s): I10 - Essential (primary) hypertension (3) Tobacco abuse Priority: Primary Status: Chronic Comments: patient states she quit 3 days before admit and does not plan to resume (4) Morbid obesity Priority: Primary Status: Chronic Comments: Lifestyle modification including activity and diet (5) Pneumonia Priority: Primary Status: Acute Comments: Continue Levaquin Qualifiers: Pneumonia type: due to unspecified organism Laterality: bilateral Lung location: unspecified part of lung Qualified Code(s): J18.9 - Pneumonia, unspecified organism (6) Anxiety and depression Priority: Primary Status: Chronic Comments: Mood is stable continue home regime (7) Acute and chronic respiratory failure Priority: Primary Status: Chronic Comments: noncompliant with bipap at home Qualifiers: Respiratory failure complication: hypoxia and hypercapnia Qualified Code(s) : J96.21 - Acute and chronic respiratory failure with hypoxia; J96.22 - Acute and chronic respiratory failure with hypercapnia; J96.22 - Acute and chronic respiratory failure with hypercapnia; J96.22 - Acute and chronic respiratory failure with hypercapnia Hospital course: Ms. Ashton is a 57 year old female with a history of COPD oxygen dependent and BiPAP at home for sleep apnea who presented with complaints of shortness of breath. She had a 3 day history of cough and shortness of that was worth on exertion has been getting progressively worse. She stated she had some occasional white mucus with wheezing and chest pain on inspiration. She denied any fevers chills palpitations dizziness syncope diarrhea or abdominal pain. She states she is not using her BiPAP as the mask makes her feel claustrophobic and does not fit well. She states she usually smokes 2 packs per day but she quit 3 days ago and does not plan to restart per verbal report this morning. She does not know how much oxygen her machine delivers and she has no portable oxygen at home. She also has a history of CHF hyperlipidemia and hypertension anxiety and depression. She was not volume overloaded during this admission. Upon assessment this morning she feels very good. She feels her breathing is back to baseline. Pressure is stable, she is satting 92% on room air and with O2 cannula overnight 2.5 she was 90%. Explained that she could it different types of mass for her BiPAP including nasal pillows she needs talk to her primary provider. She will follow-up with her PCP in 5-7 days and complete discharge medications as ordered. She should also utilize yogurt or over-the- counter probiotic while on the Levaquin. Discharge discussed with: patient, nurse Time spent discussing smoking cessation with patient: 3 to 10 minutes - Time Spent with Patient Total time spent providing and/or coordinating discharge services: Less than 30 minutes - Discharge Medications Prescriptions: Ipratropium/Albuterol Neb [Duoneb] 3 ml IH [id number] #120 inhsol Benzonatate [Tessalon] 200 mg PO TID PRN 7 Days #21 capsule PRN Reason: Cough levoFLOXacin [Levaquin] 750 mg PO DAILY #7 tablet predniSONE [PredniSONE] 10 mg PO DAILY #30 tablet Home Medications: Albuterol Sulfate [Albuterol Inhaler] 2 puff IH Q4H PRN 10/19/17 [History] Amitriptyline [Elavil] 50 mg PO HS 10/19/17 [History] Budesonide/Formoterol 160/4.5 [Symbicort 160/4.5] 2 puff IH BIDR 10/19/17 [ History] Cholecalciferol (Vitamin D3) [Vitamin D3] 10,000 unit PO DAILY 10/19/17 [History ] Diclofenac Sodium [Voltaren] 50 mg PO Q8HR 10/19/17 [History] Famotidine [Pepcid] 20 mg PO BID 10/19/17 [History] Gabapentin [Neurontin] 800 mg PO QID 10/19/17 [History] Lisinopril/Hydrochlorothiazide [Zestoretic 10-12.5 mg Tablet] 1 each PO DAILY [History] Promethazine [Phenergan] 25 mg PO Q8H PRN 10/19/17 [History] Tizanidine HCl 4 - 8 mg PO TID PRN 10/19/17 [History] Trazodone HCl 100 mg PO HS PRN 10/19/17 [History] Umeclidinium [place] [Incruse Ellipta] 62.5 mcg IH DAILY 10/19/17 [History] Amlodipine Besylate 10 mg PO DAILY 11/29/17 [History] Benzonatate [Tessalon] 200 mg PO TID PRN 7 Days #21 capsule 12/02/17 [Rx] Ipratropium/Albuterol Neb [Duoneb] 3 ml IH [id number] #120 inhsol 12/02/17 [Rx] levoFLOXacin [Levaquin] 750 mg PO DAILY #7 tablet 12/02/17 [Rx] predniSONE [PredniSONE] 10 mg PO DAILY #30 tablet 12/02/17 [Rx] Allergies/Adverse Reactions: 3 Allergy/AdvReac Type Severity Reaction Status Date / Time No Known Allergies Allergy Verified 12/09/15 12:33 Date of admission: 11/29/17 21:28 Primary care physician: Familia Slater MD Discharging clinician: Ninfa Sharma Anticipated date of discharge: 12/02/17 - Constitutional Vitals: Temp Pulse Resp BP Pulse Ox 98.5 F 75 17 109/71 86 12/02/17 07:45 12/02/17 07:45 12/02/17 07:45 12/02/17 07:45 12/02/17 07:45 General appearance: Present: cooperative, A&O X 3, morbidly obese, pleasant, no acute distress, answers questions appropriately - Head Head exam: Present: atraumatic, normocephalic - Eye Eye exam: Present: PERRL, conjuntiva pink, sclera anicteric Pupils: Present: PERRL - Neck Neck exam general surgery: Present: supple, trachea midline. Absent: lymphadenopathy - Respiratory Respiratory exam: Present: decreased breath sounds, CTAB, prolonged expiratory phase. Absent: accessory muscle use, rales, rhonchi, wheezes - Cardiovascular Cardiovascular exam: Present: RRR, +S1, +S2. Absent: diastolic murmur, gallop, rubs, systolic murmur - GI/Abdominal GI/Abdominal exam: Present: normal bowel sounds, soft, no peritoneal signs. Absent: distended, tenderness - Extremities Exam Extremities exam: Present: warm, radial pulses palpable and symmetrical. Absent : calf tenderness, cyanotic, pedal edema - Neurological Exam Neurological exam: Present: alert, CN II-XII intact, normal gait, oriented X3, no focal deficits. Absent: pronater drift, facial droop, speech deficit - Skin Skin exam: Present: dry, intact, normal color, warm - Patient Status Disposition: Home, Self-Care Condition: Good Functional capacity at discharge: independent ambulation Overall status at discharge: patient is back to baseline - Discharge Instructions Follow Up With: Bibi Chow CNP [Advanced Practice Nurse] - 12/06/17 11:00 am Familia Slater MD [Primary Care Provider] - 01/25/18 1:45 pm - Diet and Activity Activity: increase activity as tolerated Diet: low fat, low cholesterol, low salt diet
--- NOTE | 2017-12-02 13:37 | Electrocardiograph Report ---
[place] [id number] Test Date: 2017-11-29 Pat Name: Erica Ashton Department: 103 Room: 3B Gender: F Manager Infusion: EKP : 1960 Requested By: Marlon Slater Order Number: [id number] Reading MD: Halima Pickens Measurements Intervals [place] Rate: 93 P: 63 CO: 146 QRS: 24 QRSD: 95 T: 69 QT: 287 QTc: 337 Interpretive Statements SINUS RHYTHM NONSPECIFIC ST-WAVE ABNORMALITY Electronically Signed On 12-02-2017 13:36:00 EDT by Halima Pickens
== END 2017-12-02 09:30 | disposition home or self-care (01) | DRG 140 ==
LOC: EMEROO 14:03 → 3BNU 14:03
PROVIDERS: ADMIT Internal Medicine; ATTEND Registered Nurse